=== PATIENT | male | born 2000 | race African-American/Black ===

== ENCOUNTER 2024-06-17 08:45 | Emergency (ER) | payer OTHER, SELFPAY ==
[~2024-06-17] VITALS: Ht 175.3 cm; Wt 69.3 kg
[2024-06-17] MEDS: FAMOTIDINE 20 MG TAB PO ONE (11:14)
[2024-06-17] MEDS: METOCLOPRAMIDE HCL 5MG/ml INJ 2ml VIAL IM ONE (11:14)
[2024-06-17] MEDS: KETOROLAC TROMETH 30 MG/ML 1ML VIAL IM ONE (11:14)
[2024-06-17 11:34] VITALS: BP 173/85; PULSE 53; RESP 18; TEMP 98.6; O2SAT 98
== END 2024-06-17 11:45 | disposition home or self-care (01) ==
LOC: ER 08:45
DX: F12.188 Cannabis abuse with other cannabis-induced disorder (principal); R11.2 Nausea with vomiting, unspecified
CPT/HCPCS: 96372; 99284; J1885; J2765